=== PATIENT | female | born 1960 | race Caucasian/White ===

== ENCOUNTER 2018-04-06 17:42 | Inpatient (IN) | payer MEDICARE ==
[~2018-04-06] VITALS: Ht 154.9 cm; Wt 40.8 kg
[2018-04-06] MEDS ORDERED: SODIUM CHLORIDE 0.9% 1000ML 1,000 ML IV ONE (18:15)
[2018-04-06 18:24] LABS: BASOPHILS % 0.3 % (0.0-1.0); EOSINOPHILS # (AUTO) 0.1 (0.0-0.4); EOSINOPHILS % 1.2 % (0.0-6.0); HEMATOCRIT 36.1 % (34.2-44.1); HEMOGLOBIN 12.4 g/dL (12.0-16.0); LYMPHOCYTES # (AUTO) 0.6 (1.0-3.2); LYMPHOCYTES % 8.3 % (18.0-39.1); MEAN CORPUSCULAR HEMOGLOBIN 30.9 pg (28-32); MEAN CORPUSCULAR HGB CONC 34.3 g/dL (31-35); MONOCYTES % 12.6 % (4.4-11.3); NEUTROPHILS # (AUTO) 5.9 (2.1-6.9); NEUTROPHILS % 77.3 % (38.7-80.0); PLATELET COUNT 209 x10e3/uL (140-360); RED BLOOD COUNT 4.01 x10e6/uL (3.6-5.1); RED CELL DISTRIBUTION WIDTH 14.6 % (11.7-14.4)
[2018-04-06] MEDS ORDERED: NALOXONE HCL INJ 0.4 MG/ML AMP IV ONE (18:30)
[2018-04-06 18:42] LABS: ALBUMIN/GLOBULIN RATIO 0.7 (0.8-2.0); ANION GAP 17.6 mmol/L (8-16); CALCIUM 9.3 mg/dL (8.4-10.2); CREATININE, SERUM 3.26 mg/dL (0.57-1.11); MAGNESIUM 1.4 MG/DL (1.3-2.1); PHOSPHORUS 2.3 MG/DL (2.3-4.7)
[2018-04-06 18:45] LABS: POTASSIUM 2.6 mmol/L (3.5-5.1)
[2018-04-06] MEDS ORDERED: POTASSIUM CHLORIDE 20MEQ/100ML 100 ML IV ONE (18:45)
[2018-04-06 19:02] LABS: THYROID STIMULATING HORMONE 2.745 uIU/mL (0.350-4.940)
[2018-04-06 19:31] LABS: CLARITY,URINE SL CLOUDY (CLEAR); COLOR,URINE YELLOW (YELLOW); LEUKOCYTE ESTERASE ,URINE 1+ (NEGATIVE); NITRITE,URINE NEGATIVE (NEGATIVE); PROTEIN,URINE DIPSTICK 2+ (NEGATIVE)
[2018-04-06 19:32] LABS: AMPHETAMINES SCREEN,URINE NEGATIVE (NEGATIVE); BENZODIAZEPINES SCREEN,URINE NEGATIVE (NEGATIVE); BILIRUBIN,URINE 1+ (NEGATIVE); KETONES,URINE TRACE (NEGATIVE); PHENCYCLIDINE SCREEN,URINE NEGATIVE (NEGATIVE); URINE UROBILINOGEN 0.2 mg/dL (0.2 - 1)
[2018-04-06 19:42] LABS: AMORPHOUS SEDIMENT,URINE RARE (FEW); BACTERIA,URINE MANY /HPF; EPITHELIAL CELLS,URINE FEW /LPF; MUCUS,URINE FEW (RARE); WBC,URINE (MAN) 21-50 /HPF (0-5)
[2018-04-06] MEDS ORDERED: LORAZEPAM INJ 2 MG/ML VIAL IV ONE (20:00)
[2018-04-06] MEDS: CEFTRIAXONE SOD 1 GM VIAL IV SCH (20:11)
[2018-04-06] MEDS ORDERED: LORAZEPAM INJ 2 MG/ML VIAL IV PRN (20:45)
[2018-04-06 21:09] LABS: CREATINE KINASE MB 6.3 ng/mL (0-5.0)
[2018-04-06] MEDS ORDERED: SUPER B-COMPL400 MCG (22:13)
[2018-04-06] MEDS ORDERED: LIPITOR20 MG (22:13)
[2018-04-06] MEDS ORDERED: LEVAQUIN250 MG PO (22:13)
[2018-04-06] MEDS ORDERED: CILOSTAZOL100 MG PO (22:13)
[2018-04-06] MEDS ORDERED: WARFARIN SODIU7.5 MG (22:13)
[2018-04-06] MEDS ORDERED: CARVEDILOL3.125 MG PO (22:13)
[2018-04-06] MEDS ORDERED: PLAVIX75 MG PO (22:13)
[2018-04-06] MEDS ORDERED: NEXIUM40 MG (22:13)
--- NOTE | 2018-04-06 22:18 | Diagnostic Imaging Report ---
Examination: CT of head without contrast History: Altered mental status Comparison studies: None Technique: Axial images were obtained from the skull base to the vertex. Coronal and sagittal reconstructions obtained from the axial data. Findings: Scalp/skull: No abnormalities. No fractures, blastic or lytic lesions. Extra-axial spaces: No masses. No fluid collections. Brain sulci: Appropriate for age. Ventricles: Normal in size and configuration. No hydrocephalus. Parenchyma: There are subtle confluent areas of hypoattenuation in the periventricular and subcortical white matter, nonspecific. No masses, hemorrhage, or acute cortical vascular insults. Sellar/suprasellar region: No abnormalities Craniocervical junction: Patent foramen magnum. No Chiari one malformation. Incidental atherosclerotic calcifications in the intracranial vertebral arteries. IMPRESSION: 1. No acute intracranial abnormalities. 2. Mild chronic microvascular ischemic change. A verbal report was provided to Dr. Caldwell of the emergency department on 04/06/2018 at 2032 hours. Signed by: Dr. Crystal Silvestre M.D. on 04/06/2018 10:15 PM
[2018-04-07] VITALS (9 sets, daily range): BP systolic 110–169; BP diastolic 58–88
[2018-04-07 05:26] LABS: BASOPHILS % 0.7 % (0.0-1.0); EOSINOPHILS # (AUTO) 0.2 (0.0-0.4); EOSINOPHILS % 3.1 % (0.0-6.0); HEMATOCRIT 38.3 % (34.2-44.1); HEMOGLOBIN 12.7 g/dL (12.0-16.0); LYMPHOCYTES # (AUTO) 1.1 (1.0-3.2); MEAN CORPUSCULAR HEMOGLOBIN 31.1 pg (28-32); MEAN CORPUSCULAR HGB CONC 33.2 g/dL (31-35); MEAN CORPUSCULAR VOLUME 93.9 fL (81-99); MONOCYTES # (AUTO) 1.1 (0.2-0.8); MONOCYTES % 19.5 % (4.4-11.3); NEUTROPHILS # (AUTO) 3.1 (2.1-6.9); NEUTROPHILS % 56.3 % (38.7-80.0); PLATELET COUNT 203 x10e3/uL (140-360); RED BLOOD COUNT 4.08 x10e6/uL (3.6-5.1); RED CELL DISTRIBUTION WIDTH 14.3 % (11.7-14.4)
[2018-04-07 05:57] LABS: ALBUMIN 2.8 g/dL (3.5-5.0); ALBUMIN/GLOBULIN RATIO 0.8 (0.8-2.0); ANION GAP 16.4 mmol/L (8-16); CALCIUM 9.1 mg/dL (8.4-10.2); CREATININE, SERUM 3.58 mg/dL (0.57-1.11); POTASSIUM 3.4 mmol/L (3.5-5.1)
[2018-04-07 06:46] LABS: CREATINE KINASE MB 3.5 ng/mL (0-5.0)
--- NOTE | 2018-04-07 09:04 | Consultation ---
DATE OF CONSULTATION: April 07, 2018 HISTORY OF PRESENT ILLNESS: This 57-year-old female, who was visiting [place] from [place], on dialysis for the last 6 years, etiology unclear, apparently came to dialysis unit and had altered mental state, which worsened on dialysis. It was unclear exactly what was going on, whether she had a stroke or she took some medications. She was rerouted to the emergency room and subsequently admitted. Initial labs: White count 7.6, hemoglobin 12.4, platelets 209. Potassium 2.6. She was status post dialysis. Bicarbonate 30, creatinine 3.26, calcium 9.3. Blood sugar was 233. Creatinine kinase was 444 with a CK-MB of 6.3. Troponin I 0.006. Total protein 7.1, albumin 3, globulin 4.1. TSH 2.75. Patient is currently awake and alert. Does not remember what happened. She denies prior history of syncope. She denies prior history of seizures. She denies taking any mrcy-rxa-[id number] pain medication. She denies taking any narcotic. She "seldom" drinks and occasionally smokes. She used to be a heavy smoker in the past. She does have history of hypertension. She denies any history of malignancy. She denies any history of depression, schizophrenia or anxiety. CURRENT REVIEW OF SYSTEMS: Negative for headache, fever, chills, chest pain, shortness of breath. CURRENT MEDICATIONS: The patient is on ceftriaxone 1 gram IV q.24., Neulasta, ondansetron. For dose schedule, please see MAR. SOCIAL HISTORY: As above. FAMILY HISTORY: Significant for hypertension. PHYSICAL EXAMINATION GENERAL: Awake, alert, lying supine. No apparent distress. VITALS: Blood pressure 136/81. Pulse rate 80. HEAD AND NECK: Corneas clear. Oral mucosa is dry. Neck veins flat. LUNGS: Relatively clear. No rales. HEART: S1 and S2 audible. ABDOMEN: Soft and nontender. LOWER EXTREMITIES: No edema. WORKUP: CT brain negative for any stroke or hemorrhage. IMPRESSION: Altered mental status, delirium. Unclear etiology. Elevated CK with CK-MB and troponin noted. I will discuss with Dr. Pedraza. Currently volume status is stable. No fever noted. No evidence of encephalitis or meningitis. Please see orders. Job#: [id number]
--- NOTE | 2018-04-07 09:11 | Consultation ---
DATE OF CONSULTATION: April 07, 2018 ADDENDUM According to ER notes, when the patient came, she was very delusional, confused, and delirious. She was given naloxone. Urine drug screen came back positive. She then reacted with more restlessness, anxiety, and delusional state. So, patient was then given Ativan, empiric antibiotics. Urine drug screen positive for opiates. Patient does not recollect anything what happened. She denies taking any opiates, but I am going to have another conversation with her. Job#: [id number] CF
--- NOTE | 2018-04-07 11:36 | Diagnostic Imaging Report ---
PROCEDURE: A single AP view of the chest. COMPARISON: None. INDICATIONS: COUGH FINDINGS: Lines/tubes: None. Lungs: The lungs are well inflated and clear. There is no evidence of pneumonia or pulmonary edema. Pleura: There is no pleural effusion or pneumothorax. Heart and mediastinum: The heart and the mediastinum are unremarkable. Bones: No acute bony abnormality. IMPRESSION: 1. No acute cardiopulmonary abnormalities. Isak Mccray M.D. Dictated by: Isak Mccray M.D. on 04/07/2018 at 11:41 Electronically approved by: Isak Mccray M.D. on 04/07/2018 at 11:41
[2018-04-07 14:17] LABS: CREATINE KINASE MB 2.7 ng/mL (0-5.0)
[2018-04-07] MEDS: SODIUM CHLORIDE FLUSH 10 ML SYR INJ PRN (20:00)
[2018-04-07] MEDS: CEFTRIAXONE SOD 1 GM VIAL IV SCH (20:00)
[2018-04-07] MEDS: ONDANSETRON HCL INJ 2 MG/ML VIAL IV PRN (21:10)
[2018-04-08 00:20] VITALS: BP 121/72
[2018-04-08 04:10] VITALS: BP 134/74
[2018-04-08 05:16] LABS: INR 0.94; PROTHROMBIN TIME 11.8 seconds (11.9-14.5)
[2018-04-08 05:40] LABS: ALBUMIN 2.7 g/dL (3.5-5.0); ALBUMIN/GLOBULIN RATIO 0.8 (0.8-2.0); ANION GAP 16.3 mmol/L (8-16); CALCIUM 9.2 mg/dL (8.4-10.2); CREATININE, SERUM 3.94 mg/dL (0.57-1.11); POTASSIUM 3.3 mmol/L (3.5-5.1)
[2018-04-08 08:00] VITALS: BP 117/79
[2018-04-08 12:00] VITALS: BP 152/75
--- NOTE | 2018-04-08 12:01 | Discharge Summary ---
FINAL DIAGNOSIS: Delirium, resolved. SECONDARY DIAGNOSES 1. End-stage renal disease. 2. Hypertension. 3. Peripheral vascular disease. CONSULTANTS: Dr. Doty, nephrology. PROCEDURES/STUDIES PERFORMED: Head CT, which did not show any acute disease. HISTORY: Per [facility] HOSPITAL COURSE: Her delirium is not exactly clear. Initially, she had pyuria; however, her urine culture is negative; therefore, this is not the etiology. Potentially, this could be due to narcotic. Patient states that she does not take any narcotics; however, her urine screen showed up narcotics. Per patient, she had amnesia after event; however, she says her friend's daughter does use heroin. Patient also takes Coumadin for peripheral vascular disease; however, her INR level is subtherapeutic. At this time, patient is back to her baseline and has stopped her empiric IV Rocephin. Patient will be dialyzed again today on her scheduled dialysis date and will be going home afterwards. CONDITION ON DISCHARGE: Stable. DISCHARGE MEDICATIONS: Please see medication reconciliation form. Patient was seen and examined today. I took 32 minutes to discharge this patient. DEAN FULTON M.D. Job#: [id number] [place]
[2018-04-08] MEDS: SODIUM CHLORIDE FLUSH 10 ML SYR INJ PRN (12:14)
[2018-04-08] MEDS: ONDANSETRON HCL INJ 2 MG/ML VIAL IV PRN (12:14)
[2018-04-08] MEDS ORDERED: SODIUM CHLORIDE 0.9% 1000ML 2,000 ML ONE (13:15)
[2018-04-08 16:00] VITALS: BP 135/76
== END 2018-04-08 17:45 | disposition home or self-care (01) | DRG 947 ==
LOC: ER 17:42 → ERHOLD 20:44 → MED/SURG2 21:59
PROVIDERS: ADMIT Internal Medicine; ATTEND Internal Medicine
PROC: 5A1D70Z Performance of Urinary Filtration, Intermittent, Less than 6 Hours Per Day (ICD-10-PCS; principal; 2018-04-08)
DX: R41.0 Disorientation, unspecified (principal); N18.6 End stage renal disease; I12.0 Hypertensive chronic kidney disease with stage 5 chronic kidney disease or end stage renal disease; Z99.2 Dependence on renal dialysis; R79.1 Abnormal coagulation profile; E87.6 Hypokalemia; E86.0 Dehydration
CPT/HCPCS: 36415; 70450; 71045; 80053; 80307; 81001; 82550; 82553; 82948; 83735; 84100; 84443; 84484; 85025; 85610; 86706; 86803; 87086; 87340; 87350; 96375; 96376; 99285; J0696; J2060; J2310; J2405; J3480; J7030